=== PATIENT | male | born 1985 | race Caucasian/White ===

== ENCOUNTER 2021-06-10 02:00 | Emergency (ER) | payer SELFPAY ==
[2021-06-10] MEDS ORDERED: NA CHLORIDE 0.9% 1,000 ML ONE (02:42)
[2021-06-10 02:55] LABS: Basophils % 0.5 % (0-1.3); Hematocrit 43.7 % (39.6-49.0); Lymphocytes % 23.6 % (15.3-44.8); MPV 8.6 fL (7.6-11.3); RBC Red Blood Cell Count 4.82 M/uL (4.33-5.43)
[2021-06-10 02:56] LABS: Protime INR 0.93
[2021-06-10 03:09] LABS: ALT/SGPT 29 U/L (12-78); AST/SGOT 18 U/L (15-37); Albumin 3.7 g/dL (3.4-5.0); Alkaline Phosphatase 69 U/L (45-117); BUN Blood Urea Nitrogen 5 mg/dL (7-18); Bicarbonate 33 mmol/L (21-32); Bilirubin Direct < 0.1 mg/dL (0-0.2); Bilirubin Total 0.3 mg/dL (0.2-1.0); Glucose Level 252 mg/dL (74-106); Potassium 3.3 mmol/L (3.5-5.1); Sodium Level 139 mmol/L (136-145)
--- NOTE | 2021-06-10 05:15 | ER ---
Nurse's Notes [facility] Name: Kaden Stinson Age: 35 yrs Sex: Male : 1985 Arrival Date: 06/10/2021 Time: 02:04 Bed 5 Private MD: Diagnosis: Adverse effect of other narcotics;Accidental overdose of recreational drug Presentation: 06/10 02:04 Chief complaint: EMS states: they were toned out for report of pt found by bystanders bb who called EMS pt respirations on scene were 4 breaths per minute they gave him Narcan 2 mg intranasally x 2. Coronavirus screen: At this time, the client does not indicate any symptoms associated with coronavirus-19. Ebola Screen: No symptoms or risks identified at this time. Initial Sepsis Screen: Does the patient meet any 2 criteria? No. Patient's initial sepsis screen is negative. Does the patient have a suspected source of infection? No. Patient's initial sepsis screen is negative. Risk Assessment: Do you want to hurt yourself or someone else? Patient reports no desire to harm self or others. Onset of symptoms. 02:04 Method Of Arrival: EMS: [facility] 02:04 Acuity: ASTON 2 bb 02:08 Care prior to arrival: Medication(s) given: Narcan 2 mg intranasally x 2 at 0125 and bb 0130 Glucose check: 342. 03:32 Note Pt resting with eyes closed. Alert to voice and touch. df1 05:17 Note Pt A\\T\\Ox4 with clear speech. Pt to be discharged. df1 Historical: - Allergies: 02:07 No Known Allergies; bb - Home Meds: 02:07 None [Active]; bb - PMHx: 02:07 None; bb - Immunization history:: Adult Immunizations up to date. - Social history:: Smoking status: unknown. - Family history:: not pertinent. - Hospitalizations: : No recent hospitalization is reported. Screenin:23 Abuse screen: Denies threats or abuse. Nutritional screening: No deficits noted. df1 Tuberculosis screening: No symptoms or risk factors identified. Fall Risk None identified. Assessment: 02:25 Respiratory: Airway is patent Trachea midline Respiratory effort is even, unlabored, df1 Respiratory pattern is regular, symmetrical. 02:25 General: Appears uncomfortable, unkempt, Behavior is calm, cooperative, drowsy. Pain: df1 Denies pain. Neuro: No deficits noted. Cardiovascular: No deficits noted. GI: Pt is actively vomiting undigested food. : No deficits noted. EENT: No deficits noted. Derm: No deficits noted. Musculoskeletal: No deficits noted. Overdose: 03:23 [place] Suicide Severity Screening: "In the past month, have you wished you were df1 or wished you could go to sleep and not wake up?" Patient responds "yes." Based off client's responses, additional C-SSRS screening questions required. 03:24 [place] Suicide Severity Screening: "In the past month, have you actually had any df1 thoughts of killing yourself?" Patient responds "no." "In your lifetime, have you ever done anything, started to do anything, or prepared to do anything to end your life?" Patient responds "no.". Overdose occurred 1-2 hours ago. 03:26 [place] Suicide Severity Screening: "In the past month, have you actually had any df1 thoughts of killing yourself?" Patient responds "yes." Based off client's responses, additional C-SSRS screening questions required. Patient took Pt stated he "snorted white unknown substance". Denies trying to hurt self. Denies previous OD. Vital Signs: 02:04 BP 135 / 84; Pulse 80; Resp 12 S; Pulse Ox 96% on R/A; Weight 72.57 kg (R); Height 5 bb ft. 8 in. (172.72 cm) (R); Pain 0/10; 02:44 BP 109 / 71; Pulse 86; Resp 18; Pulse Ox 97% on R/A; df1 03:31 BP 113 / 77; Pulse 81; Resp 18; Pulse Ox 97% on R/A; df1 05:00 BP 117 / 70; Pulse 73; Resp 18; Pulse Ox 98% on R/A; df1 02:04 Body Mass Index 24.33 (72.57 kg, 172.72 cm) bb ED Course: 02:04 Patient arrived in ED. bb 02:06 Triage completed. bb 02:07 Arm band placed on Patient placed in an exam room, on a stretcher, on compliance monitor, bb on pulse oximetry. 02:11 Zachary Queen MD is Attending Physician. rn 02:32 Acetaminophen Sent. bc5 02:32 Inserted saline lock: 18 gauge in right antecubital area, using aseptic technique. [facility] 03:16 Bev Viramontes is Primary Nurse. df1 03:31 Patient has correct armband on for positive identification. Placed in gown. Bed in low df1 position. Call light in reach. Side rails up X 1. 03:31 No provider procedures requiring assistance completed. df1 05:33 IV discontinued, intact. df1 Administered Medications: 02:32 Drug: NS 0.9% 1000 ml Route: IV; Rate: 1000 ml; Site: right antecubital; bc5 05:17 Follow up: IV Status: Completed infusion; IV Intake: 1000ml df1 Intake: 05:17 IV: 1000ml; Total: 1000ml. df1 Outcome: 05:15 Discharge ordered by . rn 05:33 Discharged to home ambulatory. df1 05:33 Condition: stable 05:33 Discharge instructions given to patient, Instructed on discharge instructions, follow up and referral plans. Demonstrated understanding of instructions, follow-up care. 05:34 Patient left the ED. df1 Signatures: Tamica Cabrera RN RN bb Nieto, Roman, MD MD rn Corado, Bella, RN RN bc5 Furlich, Dawn df1 Corrections: (The following items were deleted from the chart) 03:20 03:18 Respiratory: Airway is patent Trachea midline Respiratory effort is even, df1 unlabored, Respiratory pattern is regular, symmetrical, df1 03:23 03:18 General: Appears uncomfortable, unkempt, Behavior is calm, cooperative, drowsy, df1 df1 03:23 03:18 Pain: Denies pain. df1 df1 03:23 03:18 Neuro: No deficits noted. df1 df1 03:23 03:18 Cardiovascular: No deficits noted. df1 df1 03:23 03:18 GI: Pt is actively vomiting undigested food, df1 df1 03:23 03:18 : No deficits noted. df1 df1 03:23 03:18 EENT: No deficits noted. df1 df1 03:23 03:18 Derm: No deficits noted. df1 df1 03:23 03:18 Musculoskeletal: No deficits noted. df1 df1 03:31 03:29 Assist provider with laceration repair on nose that was 2.5 cm. or less using df1 sutures. Performed by Zachary Queen MD Dressed with Patient tolerated well. df1
--- NOTE | 2021-06-10 05:15 | EDPHYS ---
Physician Documentation [facility] Name: Kaden Stinson Age: 35 yrs Sex: Male : 1985 Arrival Date: 06/10/2021 Time: 02:04 Bed 5 Private MD: ED Physician Zachary Queen HPI: 06/10 02:28 This 35 yrs old Male presents to ER via EMS with complaints of Overdose. rn 02:28 The patient presents to the emergency department after a known overdose, a result of rn recreational substance abuse. Context: Method: the patient has a confirmed or suspected inhalation, Time: the patient's OD/poisoning occurred at an unknown time, the OD/poisoning occurred at at an unknown location, and was witnessed by a bystander. Associated signs and symptoms: Pertinent positives: decreased level of consciousness, Pertinent negatives: auditory hallucinations, loss of consciousness. Severity of symptoms: At their worst the symptoms were severe in the emergency department the symptoms have improved. It is unknown whether or not the patient has had similar symptoms in the past. It is unknown whether or not the patient has recently seen a physician. Per EMS 911 was called by bystanders after patient was minimally responsive or unresponsive. Patient breathing only several times a minute and decision made to give Narcan x2 by EMS with improvement in depressed mental status of patient. Patient woke up and threw up. Patient admits to snorting some type of powder but does not tell us specifically what kind of drug it was.. Historical: - Allergies: 02:07 No Known Allergies; bb - Home Meds: 02:07 None [Active]; bb - PMHx: 02:07 None; bb - Immunization history:: Adult Immunizations up to date. - Social history:: Smoking status: unknown. - Family history:: not pertinent. - Hospitalizations: : No recent hospitalization is reported. ROS: 02:28 Constitutional: Negative for fever, chills, and weight loss, Eyes: Negative for injury, rn pain, redness, and discharge, ENT: Negative for injury, pain, and discharge, Neck: Negative for injury, pain, and swelling, Cardiovascular: Negative for chest pain, palpitations, and edema, Respiratory: Negative for shortness of breath, cough, wheezing, and pleuritic chest pain, Abdomen/GI: Negative for abdominal pain, nausea, vomiting, diarrhea, and constipation, Back: Negative for injury and pain, : Negative for injury, bleeding, discharge, and swelling, MS/Extremity: Negative for injury and deformity, Skin: Negative for injury, rash, and discoloration, Neuro: Negative for headache, weakness, numbness, tingling, and seizure. Exam: 02:28 Constitutional: This is a well developed, well nourished patient who is awake, alert, rn and in no acute distress. Covered with emesis Head/Face: Normocephalic, atraumatic. Eyes: Pupils equal round and reactive to light, extra-ocular motions intact. No nystagmus. periorbital areas with no swelling, redness, or edema. Cardiovascular: Regular rate and rhythm. No pulse deficits. Respiratory: No increased work of breathing, no retractions or nasal flaring. Abdomen/GI: Soft, non-tender Skin: Warm, dry MS/ Extremity: Pulses equal, no cyanosis. Neuro: Awake and alert, GCS 15 03:48 ECG was reviewed by the Attending Physician. rn Vital Signs: 02:04 BP 135 / 84; Pulse 80; Resp 12 S; Pulse Ox 96% on R/A; Weight 72.57 kg (R); Height 5 bb ft. 8 in. (172.72 cm) (R); Pain 0/10; 02:44 BP 109 / 71; Pulse 86; Resp 18; Pulse Ox 97% on R/A; df1 03:31 BP 113 / 77; Pulse 81; Resp 18; Pulse Ox 97% on R/A; df1 05:00 BP 117 / 70; Pulse 73; Resp 18; Pulse Ox 98% on R/A; df1 02:04 Body Mass Index 24.33 (72.57 kg, 172.72 cm) bb MDM: 02:11 Patient medically screened. rn 05:13 Differential diagnosis: Ingestion/exposure to opiate, heroin, fentanyl. Data reviewed: rn vital signs, nurses notes, lab test result(s), EKG, and as a result, I will discharge patient. Data interpreted: Pulse oximetry: on room air is 97 %. Interpretation: normal. Counseling: I had a detailed discussion with the patient and/or guardian regarding: the historical points, exam findings, and any diagnostic results supporting the discharge/admit diagnosis, lab results, the need for outpatient follow up, to return to the emergency department if symptoms worsen or persist or if there are any questions or concerns that arise at home. Response to treatment: the patient's symptoms have markedly improved after treatment, and as a result, I will discharge patient. Special discussion: I discussed with the patient/guardian in detail that at this point there is no indication for admission to the hospital. It is understood, however, that if the symptoms persist or worsen the patient needs to return immediately for re-evaluation. ED course: Patient more alert, sits up, holds entire conversation. States calling for a ride. Most likely overdosed on an opiate or narcotic given great response to Narcan. Will DC home and counseled to stop using drugs.. 06/10 02:09 Order name: Acetaminophen df1 06/10 02:09 Order name: Basic Metabolic Panel; Complete Time: 03:47 df1 06/10 02:09 Order name: CBC with Diff; Complete Time: 03:47 df1 06/10 02:09 Order name: ETOH Level; Complete Time: 03:47 df1 06/10 02:09 Order name: Hepatic Function; Complete Time: 03:47 df1 06/10 02:09 Order name: PT-INR; Complete Time: 03:47 df1 06/10 02:09 Order name: Ptt, Activated; Complete Time: 03:47 df1 06/10 02:09 Order name: Salicylate; Complete Time: 03:47 df1 06/10 02:09 Order name: EKG; Complete Time: 02:10 df1 06/10 02:09 Order name: EKG - Nurse/Tech; Complete Time: 02:32 df1 06/10 02:09 Order name: IV Saline Lock; Complete Time: 02:32 df1 06/10 02:09 Order name: Acetaminophen Level; Complete Time: 03:47 EDMS 06/10 02:09 Order name: Labs collected and sent; Complete Time: 02:32 df1 06/10 02:09 Order name: Suicide Screening ([place]) df1 06/10 02:09 Order name: Urine Dipstick-Ancillary (obtain specimen) df1 EC:48 Rate is 87 beats/min. Rhythm is regular. QRS [place] is Normal. MT interval is normal. QRS rn interval is normal. QT interval is prolonged at 483 msec. No Q waves. T waves are Normal. T waves are Flattened in leads V5, V6. No ST changes noted. Clinical impression: NSR w/ Non-specific ST/T Changes. Interpreted by me. Reviewed by me. Administered Medications: 02:32 Drug: NS 0.9% 1000 ml Route: IV; Rate: 1000 ml; Site: right antecubital; bc5 05:17 Follow up: IV Status: Completed infusion; IV Intake: 1000ml df1 Disposition Summary: 06/10/21 05:15 Discharge Ordered Location: Home rn Problem: new rn Symptoms: have improved rn Condition: Stable rn Diagnosis - Adverse effect of other narcotics rn - Accidental overdose of recreational drug rn Followup: rn - With: Private Physician - When: As needed - Reason: Recheck today's complaints, Re-evaluation by your physician Discharge Instructions: - Discharge Summary Sheet rn - Opioid Overdose rn Forms: - Medication Reconciliation Form rn - Thank You Letter rn - Antibiotic cadmium burner - Prescription Opioid Use rn Signatures: Dispatcher [employer] Tamica Harden, RN MERLENE bb Zachary Queen MD MD rn Corado, Bella, RN RN 5 Bev Viramontes df1
[2021-06-10 05:44] VITALS: BP 117/70; O2SAT 98
== END 2021-06-10 05:34 | disposition home or self-care (01) ==
LOC: ER 02:00
DX: T50.991A Poisoning by other drugs, medicaments and biological substances, accidental (unintentional), initial encounter (principal); T40.695A Adverse effect of other narcotics, initial encounter
CPT/HCPCS: 36415; 80048; 80076; 80320; 80329; 85025; 85610; 85730; 93005; 96360; 96361; 99284; J7030

== ENCOUNTER 2022-01-27 11:43 | Emergency (ER) | payer SELFPAY ==
--- OUTSIDE RECORDS SUMMARY | 2022-01-27 11:46 | XMS REPORT | Continuity of Care Document ---
:1985 Author Organization [facility] t Address [address] [place] [address] Care Team Providers Name Role Phone Unavailable Unavailable Unavailable Problems This patient has no known problems. Allergies, Adverse Reactions, Alerts This patient has no known allergies or adverse reactions. Medications This patient has no known medications. Procedures This patient has no known procedures. Results Test Description Test Time Test Comments Results Result Comments Source URINALYSIS 2018-05-11 14:08:00 Test Item Value Reference Range Interpretation Comme nts GLUCOSE (test code = URGLU) NEGATIVE MG/DL NEG-100 BILIRUBN (test code = URBILI) NEGATIVE NEGATIVE KETONE (test code = URKET) NEGATIVE MG/DL NEGATIVE BLOOD (test code = URBLD) NEGATIVE UR PH (test code = URPH) 7.0 5.0-7.5 PROTEIN (test code = URPRO) NEGATIVE MG/DL NEGATIVE NITRITES (test code = URNIT) NEGATIVE NEGATIVE UROBILINGEN (test code = URURO) 0.2 EU/DL 0.2-1.0 LEUKOCYT (test code = URLEU) NEGATIVE NEGATIVE UA COLOR (test code = UA COLOR) YELLOW YELLOW CLARITY (test code = CLARITY) CLEAR CLEAR SP GRAV (test code = URSPGRAV) 1.044 1.000-1.025 H UAMICRO (test code = UAMICRO) NO CT ABDOMEN/PELVIS [id number] 13:18:[address] [id number] IMAGING REPORTPatient Name: Yeni BECKER of Service: [id number]: [phone] Sex: M Order #: [id number] Room: ERSDOB: 1985 X-Ray Number: [id number] Record Number: [id number] Hospital Number: [id number] Physician: REAL, ALIOrdering Physician: Val MARKS CT abdomen and pelvis with IV contrast 05/11/2018 at 12:41 PMHistory: Abdominal pain, nausea, diarrhea, Crohn's diseaseComparison: NoneThis CT exam was performed using one or more of the following dosereduction techniques: Automated exposure control, adjustment of the mAand/or kV according to patient size, or use of iterative re constructiontechnique.Visualized portions of the heart, lung bases, bones, vasculature andsubcutaneous soft tissues are normal.Intra-abdominal organs and appendix are within normal limits. A fewpunctate, benign calcifications are scattered in the liver.No bowel obstruction. Some stool is noted in the colon. Mildcircumferential wall prominence involving distal sigmoid and rectumportions of the colon is in part due to incomplete distention. Mild colitischanges are not excluded, particularly in the rectum.There is no free air, free fluid or adenopathy.Urinary bladder and prostate are normal.Impression:Distal colon findings as discussed. Clinical correlation recommended.Other findings as above.Electronically Signed By: Rupesh Dahl M.D., 05/11/2018 1:16 PMLegally authenticated by CRISTINA SUBRAMANIAN 2018-05-11 13:16:[id number] 12:50:00 Test Item Value Reference Range Interpretation Comments LIPASE (test code = LIPA) 59 U/L 23-300 [id number] 12:50:00 Test Item Value Reference Range Interpretation Comments SODIUM (test code = 141 MMOL/L 137-145 NA) K+ (test code = 4.2 MMOL/L 3.5-5.1 PLEASE NOTE NEW KSERUM) REFERENCE RANGE (S) IN EFFECT EFFECTIVE 010 - NEW ANALYZER (V ITROS 5600) CHLORIDE (test code 104 MMOL/L 98-107 = CL) CO2 (test code = 25 MMOL/L 22-30 CO2) BUN (test code = 11 MG/DL 9-20 BUN) CREA (test code = 0.7 MG/DL 0.8-1.5 L CREA) GLUCOSE (test code 105 MG/DL 70-99 H Fasting glucose = GLUCOSE) normal <100 MG/ DL- [employer] recommendation* * CALCIUM (test code 9.6 MG/DL 8.4-10.2 = CABLOOD) TOTPROT (test code 7.7 G/DL 6.3-8.2 = TOTPROT) ALBUMIN (test code 4.5 G/DL 3.5-5.0 = ALBSERUM) BILITOT (test code 0.7 MG/DL 0.2-1.3 = BILITOT) AST (test code = 37 U/L 15-46 AST) PHOSALK (test code 55 U/L 38-126 = PHOSALK) ALT (test code = 43 U/L 13-69 ALT) GFR (test code = 139 A GFR of >9 0 GFR) mL/min/1.73m2 mL/min/1.73m2 is considered norm al. PROTHROMBIN TIME WITH [id number] 12:46:00 Test Item Value Reference Range Interpretation Comments PROTHROMBIN TIME 13.3 SECONDS 12.0-14.6 INR Usual R edwige = 2 (test code = PT) to 3 for pr evention of deep vein thrombosis (DVT ) INR (test code = INR) 1.0 [id number] 12:46:00 Test Item Value Reference Range Interpretation Comments PTT (test code = 28.5 SECONDS 24.4-36.3 HEPARIN THE RAPEUTIC PTT) RANGE 57-92 SEC ONDS OCCULT BLOOD, [id number] 12:20:00 Test Item Value Reference Range Interpretation Comments OCCULT BLOOD FECES (test code = NEGATIVE NEGATIVE OCCBLFEC) LOT# CRD (test code = LOT# CRD) [id number] EXP CRD (test code = EXP CRD) 2021-02 LOT# DVL (test code = LOT# DVL) [id number] EXP DVL (test code = EXP DVL) 06-08 INT QC (test code = INT QC) PASSED [id number] 11:40:00 Test Item Value Reference Range Interpretation Comments WBC (test code = 8.5 K/UL 3.5-10.9 WBC) RBC (test code = 5.53 M/UL 4.3-5.7 RBC) HGB (test code = 17.2 G/DL 13.0-17.9 HGB) HCT (test code = 48.5 % 38-52 HCT) MCV (test code = 87.7 FL 80-98 MCV) MCH (test code = 31.1 PG 28-32 MCH) MCHC (test code = 35.5 G/DL 32.5-36.5 MCHC) RDW (test code = 12.2 % 11.5-14.5 RDW) PLT (test code = 204 K/UL 150-450 PLT) MPV (test code = 11.0 FL 7.4-10.4 H MPV) MANDIFF (test code = NO MANDIFF) SCAN (test code = NO SCAN) NEUT% (test code = 70.7 % 40-75 NEUT%) LYMPH% (test code = 21.1 % 24-44 L LYMPH%) MONO% (test code = 6.0 % 0-13 MONO%) EOS% (test code = 1.4 % 0-4 EOS%) BASO % (test code = 0.4 % 0-2 BASO%) IG (test code = IG) 0 % 0-1 IG% (test code = 0.4 % 0-1 IG% = Metam yelocytes, IG%) Myelocytes, and Promyelocytes. (Immature neutr ophils not including " bands".) > 3% IG indic ates risk of sepsis NRBC% (test code = 0 /100 WBC NRBC%) ABS NEUT (test code 6.0 K/UL 1.2-7.2 = NEUT)
[2022-01-27 12:17] LABS: Absolute Lymphocytes (CBC) 1.9 K/uL (0.7-4.9); Hematocrit 45.2 % (39.6-49.0); Lymphocytes % 25.4 % (15.3-44.8); MPV 8.8 fL (7.6-11.3); RBC Red Blood Cell Count 4.98 M/uL (4.33-5.43)
[2022-01-27 12:34] LABS: Bilirubin Total 0.2 mg/dL (0.2-1.0); Potassium 3.7 mmol/L (3.5-5.1); Protein, Total 6.9 g/dL (6.4-8.2)
--- NOTE | 2022-01-27 13:24 | RAD REPORT ---
EXAM DESCRIPTION: CT - Abdomen Pelvis W Contrast - 01/27/2022 1:05 pm CLINICAL HISTORY: LLQ abdominal pain, abdominal pain, rectal pain, hematochezia and history of Crohn 's disease COMPARISON: No comparisons TECHNIQUE: Biphasic, helical CT imaging of the abdomen and pelvis was performed following 100 ml non -ionic IV contrast. No oral contrast administered. All CT scans are performed using dose optimization technique as appropriate and may include automated exposure control or mA/KV adjustment according to patient size. FINDINGS: No suspicious findings in the lung bases. The liver, spleen, and pancreas show no suspicious findings. Gallbladder and biliary tree are also wi thout suspicious finding. Symmetric renal function is seen with no hydronephrosis or suspicious renal mass. No pyelonephritis o r acute parenchymal process. No bladder abnormalities. No adrenal abnormalities. No gastric dilatation, wall thickening or edema. No acute small bowel finding seen. No acute findings of the terminal ileum. The appendix is unremarkable. There is no dilation of the colon. There is a f ocal area of wall thickening in the colon at the descending- hepatic flexure junction. This is typica lly a peristalsis affect. A lumen constricting mass would not be expected in a patient this age. No a bnormality near the rectum to explain rectal pain. No free air, free fluid or inflammatory stranding. No hernia, mass or bulky lymphadenopathy. No suspicious bony findings. IMPRESSION: Contrast enhanced CT abdomen and pelvis showing no emergent finding. Area of wall thickening and luminal narrowing near the ascending colon -hepatic flexure junction is m ost likely a peristalsis artifact. Postinflammatory stricture is possible given the inflammatory stanford l history. Lumen restricting mass or malignancy would not be typically seen in a patient this age. If the patient's abdominal pain and GI bleed findings are not otherwise explained, follow-up barium e nema or colonoscopy could be performed.
--- NOTE | 2022-01-27 14:26 | ER ---
Nurse's Notes [facility] Name: Kaden Stinson Age: 36 yrs Sex: Male : 1985 Arrival Date: 01/27/2022 Time: 11:50 Bed 23 Private MD: Diagnosis: Presentation: 01/27 11:53 Chief complaint: Patient states: abd pain and diarrhea , hx of Crohns. Coronavirus iw screen: At this time, the client does not indicate any symptoms associated with coronavirus-19. Ebola Screen: Patient negative for fever greater than or equal to 101.5 degrees Fahrenheit, and additional compatible Ebola Virus Disease symptoms Patient denies exposure to infectious person. Patient denies travel to an Ebola-affected area in the 21 days before illness onset. No symptoms or risks identified at this time. Initial Sepsis Screen: Does the patient meet any 2 criteria? No. Patient's initial sepsis screen is negative. Does the patient have a suspected source of infection? No. Patient's initial sepsis screen is negative. Risk Assessment: Do you want to hurt yourself or someone else? Patient reports no desire to harm self or others. Onset of symptoms was January 27, 2022. 11:53 Method Of Arrival: [employer] iw 11:53 Acuity: ASTON 3 iw Historical: - Allergies: 11:52 No Known Allergies; iw - Home Meds: 11:52 None [Active]; iw - PMHx: 11:52 Crohn's disease; iw - PSHx: 11:52 None; iw - Immunization history:: Client reports receiving the 2nd dose of the Covid vaccine. - Social history:: Smoking status: Patient reports the use of cigarette tobacco products, smokes one pack cigarettes per day. Screenin:04 Abuse screen: Denies threats or abuse. Denies injuries from another. Nutritional ww screening: No deficits noted. Tuberculosis screening: No symptoms or risk factors identified. Fall Risk None identified. Assessment: 12:04 Reassessment: [facility] officer Allyson at bedside with patient. ww 12:15 General: Appears in no apparent distress. Behavior is calm, cooperative. Pain: ww Complains of pain in abdomen. Neuro: Level of Consciousness is awake, alert, obeys commands, Oriented to person, place, time, situation, Moves all extremities. Gait is steady, Speech is normal. Cardiovascular: Capillary refill < 3 seconds Patient's skin is warm and dry. Respiratory: Airway is patent Respiratory effort is even, unlabored, Respiratory pattern is regular, symmetrical. GI: Abdomen is non-distended, Reports lower abdominal pain, upper abdominal pain, diarrhea. Derm: Skin is healthy with good turgor. 13:15 Reassessment: Patient appears in no apparent distress at this time. No changes from ww previously documented assessment. Patient and/or family updated on plan of care and expected duration. Pain level reassessed. Patient is alert, oriented x 3, equal unlabored respirations, skin warm/dry/pink. [employer] officer removed cuffs and left. 14:15 General: informed ASHLEY Baldwin that patient stated he was going to the restroom and left ww with the IV still in his arm. . 14:23 General: Contacted [place] [employer] of patient leaving the facility with an IV. . ww Vital Signs: 11:53 BP 119 / 71; Pulse 79; Resp 16; Pulse Ox 100% on R/A; Weight 74.84 kg; Height 5 ft. 8 iw in. (172.72 cm); Pain 7/10; 13:24 BP 119 / 75; Pulse 94; Resp 18; Pulse Ox 100% on R/A; ww 11:53 Body Mass Index 25.09 (74.84 kg, 172.72 cm) ED Course: 11:50 Patient arrived in ED. ww 11:51 Denny Brush PA is PHCP. [facility] 11:51 Luke Becerra MD is Attending Physician. [facility] 11:53 Arm band placed on. iw 11:54 Triage completed. iw 12:03 Gretel Rivera, RN is Primary Nurse. ww 12:04 Inserted saline lock: 20 gauge in right antecubital area, using aseptic technique. ww 13:07 CT Abd/Pelvis - IV Contrast Only In Process Unspecified. EDMS Administered Medications: No medications were administered Medication: 12:15 VIS not applicable for this client. ww Outcome: 14:24 Eloped from patient exam room, after seeing physician ww 14:25 Patient left the ED. ww Signatures: Dispatcher [employer] EDMS Denny Brush PA PA jmm Williams, Irene, RN RN iw Gretel Rivera RN RN ww
[2022-01-27 14:35] VITALS: O2SAT 100
[2022-01-27 14:36] VITALS: BP 119/75
--- NOTE | 2022-01-28 19:07 | EDPHYS ---
Physician Documentation [facility] Name: Kaden Stinson Age: 36 yrs Sex: Male : 1985 Arrival Date: 01/27/2022 Time: 11:50 Bed 23 Private MD: Luke Verduzco HPI: 01/27 11:51 This 36 yrs old Male presents to ER via [employer] with complaints of Abdominal jmm Pain. 11:51 The patient presents with abdominal pain. Onset: The symptoms/episode began/occurred jmm today. The symptoms do not radiate. Associated signs and symptoms: Pertinent positives: diarrhea. The symptoms are described as achy. Modifying factors: The symptoms are alleviated by nothing, the symptoms are aggravated by nothing. Patient complains of lower abdominal pain, diarrhea beginning today. Similar to previous episodes of crohns. . Historical: - Allergies: 11:52 No Known Allergies; iw - Home Meds: 11:52 None [Active]; iw - PMHx: 11:52 Crohn's disease; iw - PSHx: 11:52 None; iw - Immunization history:: Client reports receiving the 2nd dose of the Covid vaccine. - Social history:: Smoking status: Patient reports the use of cigarette tobacco products, smokes one pack cigarettes per day. ROS: 11:51 Constitutional: Negative for fever, chills, and weight loss, Cardiovascular: Negative jmm for chest pain, palpitations, and edema, Respiratory: Negative for shortness of breath, cough, wheezing, and pleuritic chest pain. 11:51 Abdomen/GI: Positive for abdominal pain, diarrhea. 11:51 All other systems are negative. Exam: 11:51 Constitutional: This is a well developed, well nourished patient who is awake, alert, jmm and in no acute distress. Head/Face: atraumatic. Eyes: EOMI, no conjunctival erythema appreciated ENT: Moist Mucus Membranes Neck: Trachea midline, Supple Chest/axilla: Normal chest wall appearance and motion. Cardiovascular: Regular rate and rhythm. No edema appreciated Respiratory: Normal respirations, no respiratory distress appreciated Abdomen/GI: Non distended, soft Back: Normal ROM Skin: General appearance color normal MS/ Extremity: Moves all extremities, no obvious deformities appreciated, no edema noted to the lower extremities Neuro: Awake and alert Psych: Behavior is normal, Mood is normal, Patient is cooperative and pleasant Vital Signs: 11:53 BP 119 / 71; Pulse 79; Resp 16; Pulse Ox 100% on R/A; Weight 74.84 kg; Height 5 ft. 8 iw in. (172.72 cm); Pain 7/10; 13:24 BP 119 / 75; Pulse 94; Resp 18; Pulse Ox 100% on R/A; ww 11:53 Body Mass Index 25.09 (74.84 kg, 172.72 cm) MDM: 11:51 Patient medically screened. [facility] 19:27 Data reviewed: vital signs, nurses notes. ED course: Patient eloped from the ED prior jm to final disposition. 01/27 12:02 Order name: CBC with Diff; Complete Time: 12:23 01/27 12:02 Order name: CMP; Complete Time: 12:44 iw 01/27 12:02 Order name: Lipase; Complete Time: 12:44 01/27 12:02 Order name: IV Saline Lock; Complete Time: 12:03 01/27 12:02 Order name: Labs collected and sent; Complete Time: 12:03 01/27 12:14 Order name: CT Abd/Pelvis - IV Contrast Only; Complete Time: 13:25 jmm 01/27 12:14 Order name: Gown patient; Complete Time: 12:42 [facility] Administered Medications: No medications were administered Disposition Summary: 01/27/22 14:25 Eloped Disposition: after being seen by provider mariela Reason: unknown ww Signatures: Dispatcher [employer] EDLuke Ramos MD MD cha Mickail, Joel, PA PA jmm Williams, Irene, Gretel Reynoso RN, RN RN ww
== END 2022-01-27 14:25 | disposition left against medical advice (07) ==
LOC: ER 11:43
DX: R10.9 Unspecified abdominal pain (principal); R19.7 Diarrhea, unspecified; K50.90 Crohn's disease, unspecified, without complications; Z53.29 Procedure and treatment not carried out because of patient's decision for other reasons
CPT/HCPCS: 36415; 74177; 80053; 83690; 85025; 99283; Q9967

== ENCOUNTER 2022-03-18 12:00 | Emergency (ER) | payer SELFPAY ==
[2022-03-18 13:06] LABS: Absolute Lymphocytes (CBC) 1.3 K/uL (0.7-4.9); Hematocrit 42.1 % (39.6-49.0); Lymphocytes % 15.3 % (15.3-44.8); MCV 90.8 fL (80-100); MPV 8.7 fL (7.6-11.3); RBC Red Blood Cell Count 4.64 M/uL (4.33-5.43)
--- NOTE | 2022-03-18 13:13 | RAD REPORT ---
EXAM DESCRIPTION: CT - Abdomen Pelvis W Contrast - 03/18/2022 12:57 pm CLINICAL HISTORY: Abdominal pain COMPARISON: January 2022 TECHNIQUE: Computed axial tomography of the abdomen pelvis was obtained. 100 cc Isovue-300 was admin istered intravenously. Oral contrast was not requested which limits evaluation of bowel and appendix All CT scans are performed using dose optimization technique as appropriate and may include automated exposure control or mA/KV adjustment according to patient size. FINDINGS: The liver, spleen, pancreas, adrenal and kidneys appear unremarkable. There is no evidence of diverticulitis. The wall of proximal ascending colon is mildly to moderately thickened Normal appendix IMPRESSION: Mild to moderate thickening of the wall of the proximal ascending colon could indicate i nflammation or probably less likely a mass. This is not significantly changed from the prior exam. Di rect visualization is recommended
[2022-03-18 13:18] LABS: ALT/SGPT 16 U/L (12-78); AST/SGOT 13 U/L (15-37); Albumin 3.8 g/dL (3.4-5.0); Alkaline Phosphatase 66 U/L (45-117); BUN Blood Urea Nitrogen 5 mg/dL (7-18); Bicarbonate 31 mmol/L (21-32); Bilirubin Total 0.2 mg/dL (0.2-1.0); Glomerular Filtration Rate 115 ml/min (=/>90); Glucose Level 105 mg/dL (74-106); Lipase 94 U/L (73-393); Potassium 3.8 mmol/L (3.5-5.1); Protein, Total 6.6 g/dL (6.4-8.2); Sodium Level 140 mmol/L (136-145)
[2022-03-18 13:50] LABS: Urine Blood Negative (Negative); Urine Glucose Negative (Negative); Urine Protein Negative (Negative); Urine Specific Gravity 1.015 (1.005-1.030)
[2022-03-18] MEDS ORDERED: MORPHINE 4 MG/ML SYR ONE (13:51)
[2022-03-18] MEDS ORDERED: ONDANSETRON 4 MG/2 ML VIAL ONE (13:51)
[2022-03-18] MEDS ORDERED: NA CHLORIDE 0.9% 1,000 ML ONE (13:52)
[2022-03-18 14:00] LABS: C-Reactive Protein < 2.90 mg/L (<3.00)
--- NOTE | 2022-03-18 14:45 | ER ---
Nurse's Notes [facility] Name: Kaden Stinson Age: 36 yrs Sex: Male : 1985 Arrival Date: 03/18/2022 Time: 12:03 Bed 26 Private MD: Diagnosis: Crohn's flare Presentation: 03/18 12:03 Chief complaint: Patient states: pt presented to ED with abdominal pain and blood laureano tinged stool. Coronavirus screen: Vaccine status: Patient reports being unvaccinated. Ebola Screen: Patient denies travel to an Ebola-affected area in the 21 days before illness onset. Initial Sepsis Screen: Does the patient meet any 2 criteria? No. Patient's initial sepsis screen is negative. Does the patient have a suspected source of infection? No. Patient's initial sepsis screen is negative. Risk Assessment: Do you want to hurt yourself or someone else? Patient reports no desire to harm self or others. Onset of symptoms was March 11, 2022. 12:03 Method Of Arrival: EMS: [facility] laureano 12:03 Acuity: ASTON 3 laureano Triage Assessment: 12:04 General: Appears in no apparent distress. Behavior is calm, cooperative. Pain: laureano Complains of pain in abdomen. Historical: - Allergies: 12:04 No Known Allergies; laureano - Home Meds: 12:04 None [Active]; laureano - PMHx: 12:04 Crohn's Disease; laureano - Immunization history:: Adult Immunizations unknown. - Social history:: Smoking status: Patient reports the use of cigarette tobacco products, smokes one pack cigarettes per day. Screenin:05 Abuse screen: Denies threats or abuse. Denies injuries from another. Nutritional laureano screening: No deficits noted. Tuberculosis screening: No symptoms or risk factors identified. Fall Risk None identified. Assessment: 12:05 General: Appears in no apparent distress. Behavior is calm, cooperative. Pain: laureano Complains of pain in abdomen. GI: Reports bloody stool, Pain is 7 out of 10 on a pain scale. Vital Signs: 12:03 BP 137 / 94; Pulse 96; Resp 18; Temp 97.8(T); Pulse Ox 100% ; Weight 65.77 kg; Height 5 laureano ft. 8 in. (172.72 cm); 13:50 BP 137 / 80; Pulse 68; Resp 17; Pulse Ox 98% ; laureano 12:03 Body Mass Index 22.05 (65.77 kg, 172.72 cm) laureano ED Course: 12:03 Patient arrived in ED. laureano 12:04 Triage completed. laureano 12:04 Arm band placed on. laureano 12:05 Patient has correct armband on for positive identification. Bed in low position. laureano 12:05 No provider procedures requiring assistance completed. laureano 12:08 Ngoc Gomes MD is Attending Physician. sd2 12:38 Kyung Cuevas, MERLENE is Primary Nurse. ss 12:59 CT Abd/Pelvis - IV Contrast Only In Process Unspecified. EDMS 15:05 IV discontinued, intact, Pressure dressing applied. laureano Administered Medications: 12:10 CANCELLED (Physician Discretion; Physicc): NS 0.9% 1000 ml IV at 125 ml/hr continuous sd2 13:49 Drug: morphine 4 mg Route: IVP; Infused Over: 4 mins; Site: left antecubital; laureano 13:50 Follow up: Response: No adverse reaction laureano 13:49 Drug: NS 0.9% 1000 ml Route: IV; Rate: 125 ml/hr; Site: left antecubital; laureano 13:50 Drug: Zofran (Ondansetron) 4 mg Route: IVP; Site: left antecubital; laureano 13:50 Follow up: Response: No adverse reaction laureano Medication: 12:05 VIS not applicable for this client. laureano Outcome: 14:44 Discharge ordered by . sd2 15:04 Discharged to Law Enforcement laureano 15:04 Condition: good 15:04 Discharge instructions given to patient, police. 15:05 Patient left the ED. laureano Signatures: Dispatcher [employer] EDIN Kyung Cuevas, MERLENE BLUNT Au-StagerKalina RN RN Ngoc Gomes MD MD sd2
--- NOTE | 2022-03-18 14:45 | EDPHYS ---
Physician Documentation [facility] Name: Kaden Stinson Age: 36 yrs Sex: Male : 1985 Arrival Date: 03/18/2022 Time: 12:03 Bed 26 Private MD: ED Physician Ngoc Gomes HPI: 03/18 14:40 This 36 yrs old Male presents to ER via EMS with complaints of abdominal pain. sd2 14:40 36 yo M with a history of Crohn's disease presents via police from [facility] with chief sd2 complaint of abdominal pain. He reports that this is consistent with his prior Crohn's flares in the past that he normally are treated with steroids. He is not currently on any medications to treat his Crohn's disease. He denies any fevers, nausea, vomiting or urinary symptoms. He has had some bloody diarrhea which he states normally occurs with his Crohn's flares. He denies any recent substance abuse.. Historical: - Allergies: 12:04 No Known Allergies; laureano - Home Meds: 12:04 None [Active]; laureano - PMHx: 12:04 Crohn's Disease; laureano - Immunization history:: Adult Immunizations unknown. - Social history:: Smoking status: Patient reports the use of cigarette tobacco products, smokes one pack cigarettes per day. ROS: 14:40 Constitutional: Negative for fever, chills, and weight loss, Eyes: Negative for injury, sd2 pain, redness, and discharge, Cardiovascular: Negative for chest pain, palpitations, and edema, Respiratory: Negative for shortness of breath, cough, wheezing. 14:40 MS/Extremity: Negative for injury and deformity, Skin: Negative for injury, rash, and discoloration, Neuro: Negative for headache, numbness and tingling. 14:40 Abdomen/GI: Positive for abdominal pain, diarrhea, rectal bleeding, Negative for nausea and vomiting, diarrhea. Exam: 14:40 Constitutional: This is a well developed, well nourished patient who is awake, alert, sd2 and in no acute distress. Head/Face: Normocephalic, atraumatic. Chest/axilla: Normal chest wall appearance and motion. Nontender with no deformity. Cardiovascular: Regular rate and rhythm with a normal S1 and S2. No gallops, murmurs, or rubs. 2+ distal pulses. Respiratory: Lungs have equal breath sounds bilaterally, clear to auscultation and percussion. No rales, rhonchi or wheezes noted. No increased work of breathing, no retractions or nasal flaring. Abdomen/GI: Soft, non-distended, mild TTP of epigastrum, RUQ and suprapubic area, no rebound or guarding Skin: Warm, dry with normal turgor. Normal color with no rashes, no lesions, and no evidence of cellulitis. MS/ Extremity: Pulses equal, no cyanosis. Neurovascular intact. Full, normal range of motion. Ambulatory without difficulty. Psych: Awake, alert, with orientation to person, place and time. Behavior, mood, and affect are within normal limits. Vital Signs: 12:03 BP 137 / 94; Pulse 96; Resp 18; Temp 97.8(T); Pulse Ox 100% ; Weight 65.77 kg; Height 5 laureano ft. 8 in. (172.72 cm); 13:50 BP 137 / 80; Pulse 68; Resp 17; Pulse Ox 98% ; laureano 12:03 Body Mass Index 22.05 (65.77 kg, 172.72 cm) laureano MDM: 12:09 Patient medically screened. sd2 14:40 Differential Diagnosis Gastritis, ACS, pancreatitis, GB pathology, diverticulitis, SBO, sd2 UTI, appendicitis among others. Data reviewed: vital signs, nurses notes, lab test result(s), radiologic studies. Counseling: I had a detailed discussion with the patient and/or guardian regarding: the historical points, exam findings, and any diagnostic results supporting the discharge/admit diagnosis, lab results, radiology results, the need for outpatient follow up, to return to the emergency department if symptoms worsen or persist or if there are any questions or concerns that arise at home. Medical screen evaluation completed. EMTALA emergency medical condition absent. ED course: Labs and imaging reviewed. Labs grossly WNCL. CTAP with some intestinal wall thickening consistent with likely Crohn's flare. No significant anemia. Will treat with steroids and advised patient of need for outpatient follow up. Verbalizes understanding of discharge plan and strict return precautions.. 03/18 12:10 Order name: CBC with Diff; Complete Time: 13:49 sd2 03/18 12:10 Order name: CMP; Complete Time: 14:03 sd2 03/18 12:10 Order name: Lipase; Complete Time: 14:03 sd2 03/18 12:10 Order name: ESR; Complete Time: 13:49 sd2 03/18 12:10 Order name: CRP; Complete Time: 14:03 sd2 03/18 13:51 Order name: Urine Dipstick-Ancillary; Complete Time: 14:03 EDMS 03/18 12:10 Order name: Urine Dipstick-Ancillary (obtain specimen); Complete Time: 13:50 sd2 03/18 12:10 Order name: CT Abd/Pelvis - IV Contrast Only; Complete Time: 13:49 sd2 Administered Medications: 12:10 CANCELLED (Physician Discretion; Physicc): NS 0.9% 1000 ml IV at 125 ml/hr continuous sd2 13:49 Drug: morphine 4 mg Route: IVP; Infused Over: 4 mins; Site: left antecubital; laureano 13:50 Follow up: Response: No adverse reaction laureano 13:49 Drug: NS 0.9% 1000 ml Route: IV; Rate: 125 ml/hr; Site: left antecubital; laureano 13:50 Drug: Zofran (Ondansetron) 4 mg Route: IVP; Site: left antecubital; laureano 13:50 Follow up: Response: No adverse reaction laureano Disposition Summary: 03/18/22 14:44 Discharge Ordered Location: Home sd2 Problem: new sd2 Symptoms: have improved sd2 Condition: Stable sd2 Diagnosis - Crohn's flare sd2 Followup: sd2 - With: Private Physician - When: 2 - 3 days - Reason: Recheck today's complaints, Continuance of care, Re-evaluation by your physician Followup: sd2 - With: Emergency Department - When: As needed - Reason: Discharge Instructions: - Discharge Summary Sheet sd2 - Crohn's Disease sd2 Forms: - Medication Reconciliation Form sd2 - Thank You Letter sd2 - Antibiotic Education sd2 - Prescription Opioid Use sd2 Prescriptions: - Tramadol 50 mg Oral Tablet - take 1 tablet by ORAL route every 6 hours as needed; 12 tablet; Refills: 0, sd2 Product Selection Permitted - Prednisone 20 mg Oral Tablet - take 2 tablets by ORAL route once daily for 5 days; 10 tablet; Refills: 0, sd2 Product Selection Permitted Signatures: Dispatcher [employer] EDKalina Horne, RN RN Ngoc Powell MD MD sd2 Corrections: (The following items were deleted from the chart) 12:10 12:10 NS 0.9% 1000 ml IV at 125 ml/hr continuous ordered. sd2 sd2
[2022-03-18 16:20] VITALS: TEMP 97.8
[2022-03-18 16:23] VITALS: BP 137/80; O2SAT 98
== END 2022-03-18 15:05 | disposition home or self-care (01) ==
LOC: ER 12:00
DX: K50.919 Crohn's disease, unspecified, with unspecified complications (principal); F17.210 Nicotine dependence, cigarettes, uncomplicated
CPT/HCPCS: 36415; 74177; 80053; 81003; 83690; 85025; 85652; 86140; 96374; 96375; 99283; J2405; J7030; Q9967